=== PATIENT | male | born 1990 | race Caucasian/White ===

== ENCOUNTER 2020-05-18 18:23 | Emergency (ER) | payer OTHER, SELFPAY ==
[2020-05-18 18:24] VITALS: BP 145/76; PULSE 88; RESP 16; TEMP 36.8; BMI 20.7
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
== END 2020-05-18 19:45 | disposition home or self-care (01) ==
LOC: ED 19:38
PROVIDERS: Emergency Provider Emergency Medicine
DX: S60.012A Contusion of left thumb without damage to nail, initial encounter (principal); S60.512A Abrasion of left hand, initial encounter; V43.52XA Car driver injured in collision with other type car in traffic accident, initial encounter; Y93.89 Activity, other specified; Y92.9 Unspecified place or not applicable
CPT/HCPCS: 99282